=== PATIENT | male | born 1960 | race Two or more races ===

== ENCOUNTER 2018-05-29 06:17 | Day surgery (SDC) | payer OTHER ==
[2018-05-29] MEDS: SOD CHLORIDE 0.9% 1,000 ML IV (07:00)
[2018-05-29 08:02] LABS: ADD MAN DIFF? NO
[2018-05-29 08:08] LABS: BASOPHILS % 0.9 % (0.0-2.0); EOSINOPHILS # 0.2 10^3/ul (0.0-0.5); EOSINOPHILS % 3.3 % (0.0-7.0); HEMATOCRIT 44.4 % (42.0-52.0); HEMOGLOBIN 15.1 g/dl (14.0-18.0); LYMPHOCYTES # 1.7 10^3/ul (0.8-2.9); LYMPHOCYTES % 36.8 % (15.0-51.0); MEAN CORPUSCULAR HEMOGLOBIN 30.7 pg (29.0-33.0); MEAN CORPUSCULAR VOLUME 90.2 fl (82.0-101.0); MEAN PLATELET VOLUME 9.6 fl (7.4-10.4); MONOCYTE # 0.4 10^3/ul (0.3-0.9); MONOCYTES % 9.2 % (0.0-11.0); NEUTROPHIL # 2.3 10^3/ul (1.6-7.5); NEUTROPHILS % 49.4 % (39.0-77.0); PLATELET COUNT 240 10^3/UL (140-415); RED BLOOD COUNT 4.92 10^6/ul (4.70-6.10); RED CELL DISTRIBUTION WIDTH 12.6 % (11.5-14.5)
[2018-05-29 08:08] LABS: WHITE BLOOD COUNT 4.6 10^3/ul (4.8-10.8)
[2018-05-29] MEDS ORDERED: FENTAnyl 50 MCG/ML VIAL (08:19)
[2018-05-29] MEDS ORDERED: GLYCOPYRROLATE 0.4 MG INJ (08:19)
[2018-05-29] MEDS ORDERED: DEXAMETHASONE 4 MG/ML 1 ML INJ (08:19)
[2018-05-29] MEDS ORDERED: PROPOFOL 20 ML (08:19)
[2018-05-29] MEDS ORDERED: NEOSTIGMINE 3 MG/3 ML SYRINGE (08:19)
[2018-05-29] MEDS ORDERED: ROCURONIUM 50 MG INJ (08:19)
[2018-05-29] MEDS ORDERED: ONDANSETRON 4 MG INJ (08:19)
[2018-05-29] MEDS ORDERED: CEFAZOLIN 1 GM INJ (08:19)
[2018-05-29] MEDS ORDERED: MIDAZOLAM 1 MG/ML 2 ML INJ (08:19)
[2018-05-29 08:37] LABS: INR 0.92; PROTIME 12.4 Sec (11.9-14.9)
[2018-05-29 08:38] LABS: PARTIAL THROMBOPLASTIN TIME 31.2 Sec (25.0-35.0)
[2018-05-29 08:46] LABS: ALANINE AMINOTRANSFERASE 36 IU/L (13-69); ALBUMIN 3.9 g/dl (3.3-4.9); ALBUMIN/GLOBULIN RATIO 1.34; ALKALINE PHOSPHATASE 77 IU/L (42-121); ANION GAP 14 (8-16); ASPARTATE AMINO TRANSFERASE 38 IU/L (15-46); BILIRUBIN,INDIRECT 0.4 mg/dl (0-1.1); BILIRUBIN,TOTAL 0.4 mg/dl (0.2-1.3); BLOOD UREA NITROGEN 12 mg/dl (7-20); CALCIUM 9.1 mg/dl (8.4-10.2); CARBON DIOXIDE 26 mmol/L (21-31); CHLORIDE 105 mmol/L (97-110); CREATININE 0.85 mg/dl (0.61-1.24); GLUCOSE 101 mg/dl (70-220); SODIUM 141 mmol/L (135-144); TOTAL PROTEIN 6.8 g/dl (6.1-8.1)
[2018-05-29] MEDS: CEFAZOLIN 2 GM/50 ML (PMX) 50 ML IVPB (09:01)
[2018-05-29] MEDS ORDERED: ROPIVACAINE 0.5 % 30 ML VIAL (09:03)
[2018-05-29] MEDS: POLYMYXIN/BACITRACIN 1L IRRIG IRR (09:17)
[2018-05-29] MEDS ORDERED: ALBUTEROL 0.083% (NEB) 2.5 MG/3 ML AMP HHN (09:30)
[2018-05-29] MEDS ORDERED: OXYCODONE/ACETAMINOPHEN (5/325) TAB PO ×2 (09:30)
[2018-05-29] MEDS ORDERED: FENTAnyl 50 MCG/ML VIAL IV ×2 (09:30)
[2018-05-29] MEDS ORDERED: MEPERIDINE 25 MG INJ IV (09:30)
[2018-05-29] MEDS ORDERED: LABETALOL HCL 20MG INJ IV (09:30)
[2018-05-29] MEDS ORDERED: HYDROmorphONE 1 MG/5 ML IV SYRINGE IV ×3 (09:30)
[2018-05-29] MEDS ORDERED: DIPHENHYDRAMINE 50 MG INJ IV (09:30)
[2018-05-29] MEDS ORDERED: IPRATROPIUM (NEB) 0.5 MG/2.5 ML AMP HHN (09:30)
[2018-05-29] MEDS ORDERED: TRIMETHOBENZAMIDE 100 MG/ML VIAL IM (09:30)
[2018-05-29] MEDS ORDERED: MIDAZOLAM 1 MG/ML 2 ML INJ IV (09:30)
[2018-05-29] MEDS ORDERED: EPHEDrine SULFATE 50 MG/5 ML SYG IV (09:30)
[2018-05-29] MEDS ORDERED: hydrALAzine 20 MG INJ IV (09:30)
[2018-05-29] MEDS: FENTAnyl 50 MCG/ML VIAL IV (10:17)
[2018-05-29] MEDS: ONDANSETRON 4 MG INJ IV (10:17)
[2018-05-29] MEDS: HYDROCODONE/APAP (5/325) TAB PO (11:43)
== END 2018-05-29 12:07 | disposition home or self-care (01) ==
LOC: SDS 06:17
DX: K40.30 Unilateral inguinal hernia, with obstruction, without gangrene, not specified as recurrent (principal)
CPT/HCPCS: 49507; 80053; 85025; 85610; 85730